=== PATIENT | male | born 1985 | race Two or more races ===

== ENCOUNTER 2017-11-15 15:54 | Emergency (ER) | payer SELFPAY ==
[~2017-11-15] VITALS: Ht 170.2 cm; Wt 68.0 kg
[2017-11-15 16:00] VITALS: BP 107/63
[2017-11-15] MEDS ORDERED: TDAP [DIPH/PERTUSSIS/TET] 0.5 ML VIAL IM ONE ×2 (16:17→16:30)
== END 2017-11-15 16:55 | disposition home or self-care (01) ==
LOC: ER 15:55
DX: S61.011A Laceration without foreign body of right thumb without damage to nail, initial encounter (principal); W45.8XXA Other foreign body or object entering through skin, initial encounter; Y93.89 Activity, other specified; Y92.89 Other specified places as the place of occurrence of the external cause; Y99.8 Other external cause status
CPT/HCPCS: 73140; 90471; 90715; 99284; A4606; A6402; Z7610